=== PATIENT | male | born 1980 ===

== ENCOUNTER 2018-01-16 16:37 | Observation (INO) | payer OTHER ==
[2018-01-16 16:46] VITALS: BMI 22.1
[2018-01-16 18:15] LABS: BASO # 0.05 K/mm3 (0.0-2.0); BASO % 0.6 % (0.0-3.0); EOS # 0.1 (0.0-0.7); EOS % 0.6 % (1.5-5.0); GRAN # 6.08 (1.4-6.5); GRAN % 67.7 % (50.0-68.0); LYMPH # 2.5 (1.2-3.4); LYMPH % 27.6 % (22.0-35.0); MEAN CELL VOLUME 83.7 fl (80.0-105.0); MEAN CORPUSCULAR HEMOGLOBIN 28.7 pg (25.0-35.0); MEAN CORPUSCULAR HGB CONC 34.3 g/dl (31.0-37.0); MEAN PLATELET VOLUME 10.7 fl (7.0-11.0); MONO # 0.3 (0.1-0.6); MONO % 3.5 % (1.0-6.0); RBC 5.57 10^6/uL (3.5-6.1); RED CELL DISTRIBUTION WIDTH 12.7 % (11.5-14.5)
[2018-01-16 18:16] LABS: INR 0.97; PARTIAL THROMBOPLASTIN TIME 25.8 Seconds (25.1-36.5); PROTHROMBIN TIME 11.1 SECONDS (9.4-12.5)
[2018-01-16 18:29] LABS: ALB/GLOB RATIO 1.3 (1.1-1.8); ALT/SGPT 33 U/L (7-56); AST/SGOT 51 U/L (17-59); BLOOD UREA NITROGEN 15 mg/dL (7-21); CALCIUM 10.1 mg/dL (8.4-10.5); GFR NON-AFRICAN AMERICAN > 60; LIPASE 48 U/L (23-300)
--- NOTE | 2018-01-16 18:32 | CARD ---
APPROVED REPORT Date of service: 01/16/2018 EKG Measurement Heart [id number] OR [id number] <Conclusion> Normal sinus rhythm Normal Electrocardiogram
[2018-01-16 18:40] LABS: TROPONIN I < 0.01 ng/mL
--- NOTE | 2018-01-16 18:41 | CT ---
Date of service: 01/16/2018 PROCEDURE: CT HEAD WITHOUT CONTRAST. HISTORY: headache COMPARISON: None available. TECHNIQUE: Axial computed tomography images were obtained through the head/brain without intravenous contrast. Supplemental Coronal and Sagittal projections created and reviewed. Radiation dose: Total exam DLP = 906.04 mGy-cm. This CT exam was performed using one or more of the following dose reduction techniques: Automated exposure control, adjustment of the mA and/or kV according to patient size, and/or use of iterative reconstruction technique. FINDINGS: HEMORRHAGE: No intracranial hemorrhage. BRAIN: No mass effect or edema. No atrophy or chronic microvascular ischemic changes. VENTRICLES: Unremarkable. No hydrocephalus. CALVARIUM: Unremarkable. PARANASAL SINUSES: Unremarkable as visualized. No significant inflammatory changes. MASTOID AIR CELLS: Unremarkable as visualized. No inflammatory changes. OTHER FINDINGS: None. IMPRESSION: No acute intracranial abnormalities. No significant findings to account for the clinical presentation.
[2018-01-16 19:51] LABS: URINE BILIRUBIN NEGATIVE (NEGATIVE); URINE BLOOD NEGATIVE (NEGATIVE); URINE GLUCOSE (UA) NEGATIVE (NEGATIVE); URINE LEUKOCYTE ESTERASE NEGATIVE Leu/uL (NEGATIVE); URINE PROTEIN NEGATIVE mg/dL (<30 mg/dL); URINE UROBILINOGEN 0.2 E.U./dL (<1 E.U./dL)
[2018-01-16 20:01] LABS: URINE APPEARANCE CLEAR (CLEAR); URINE COLOR YELLOW (YELLOW)
[2018-01-16 20:41] LABS: BARBITURATES, UR NEGATIVE (NEGATIVE); BENZODIAZEPINES, UR NEGATIVE (NEGATIVE); OPIATES, UR NEGATIVE (NEGATIVE); PHENCYCLIDINE, UR NEGATIVE (NEGATIVE)
[2018-01-16] MEDS ORDERED: Albuterol-Ipratrop 3 mg / 0.5 (3 ml) UD IH PRN (22:18)
[2018-01-16] MEDS ORDERED: Azithromycin 500MG/NS 250ml 500 MG/250 ML BAG IVPB STA (22:18)
[2018-01-16] MEDS ORDERED: Sodium Chloride 0.9% 1,000 ML IV SCH (22:30)
[2018-01-16 22:34] VITALS: RESP 20
--- NOTE | 2018-01-17 01:53 | ED PDOC ---
Arrival/HPI - General Chief Complaint: High Blood Pressure Historian: Patient - History of Present Illness Narrative History of Present Illness (Text): 01/17/18 01:49 37yo male witn no pmhx who was referred to ED by Dr. toro for new onset hypertension, headache, back and, neck and pelvic pain. Patient notes that he saw Dr. Toro today for the headache, back, neck and pelvic pain that has been going on for months today. States while he was there today his BP was elevated and he was referred to ED. He denies focal weakness, slurred speech, visual c hanges, nausea, vomiting, ripping/tearing upper back pain, any other complaint. Past Medical History - Provider Review Nursing Documentation Reviewed: Yes - Infectious Disease Hx of Infectious Diseases: None - Cardiac Hx Cardiac Disorders: No - Pulmonary Hx Respiratory Disorders: No - Neurological Hx Neurological Disorder: No - HEENT Hx HEENT Disorder: No - Renal Hx Renal Disorder: No - Endocrine/Metabolic Hx Endocrine Disorders: No - Hematological/Oncological Hx Blood Disorders: No - Integumentary Hx Dermatological Disorder: No - Musculoskeletal/Rheumatological Hx Musculoskeletal Disorders: No Hx Falls: No - Gastrointestinal Hx Gastrointestinal Disorders: No - Genitourinary/Gynecological Hx Genitourinary Disorders: No - Psychiatric Hx Psychophysiologic Disorder: No Hx Substance Use: No Family/Social History - Physician Review Nursing Documentation Reviewed: Yes Family/Social History: Unknown Family HX Smoking Status: Never Smoked Hx Alcohol Use: No Hx Substance Use: No Allergies/Home Meds Allergies/Adverse Reactions: Allergies No Known Allergies Allergy (Verified 01/16/18 16:46) Home Medications: Home Meds Medication Instructions Recorded Confirmed No Known Home Med 01/16/18 01/16/18 Review of Systems - Physician Review All systems were reviewed & negative as marked: Yes - Review of Systems Constitutional: Normal Eyes: Normal ENT: Normal Respiratory: Normal Cardiovascular: Normal Gastrointestinal: Abdominal Pain. absent: Constipation, Diarrhea, Nausea, Vomiting, Hematemesis Genitourinary Male: Normal Musculoskeletal: Back Pain Skin: Normal Neurological: Headache. absent: Dizziness, Focal Weakness, Speech Changes Endocrine: Normal Hemo/Lymphatic: Normal Psychiatric: Normal Physical Exam Vital Signs Reviewed: Yes Vital Signs Temp Pulse Resp BP Pulse Ox 01/16/18 19:32 76 18 136/87 99 01/16/18 18:32 85 16 144/88 99 01/16/18 16:49 166/103 H 01/16/18 16:47 98.3 F 92 H 18 154/94 H 97 Temperature: Afebrile Blood Pressure: Hypertensive Pulse: Regular Respiratory Rate: Normal Appearance: Positive for: Well-Appearing, Non-Toxic, Comfortable Pain Distress: None Mental Status: Positive for: Alert and Oriented X 3 - Systems Exam Head: Present: Atraumatic, Normocephalic Pupils: Present: PERRL Extroacular Muscles: Present: EOMI Conjunctiva: Present: Normal Mouth: Present: Moist Mucous Membranes Neck: Present: Normal Range of Motion Respiratory/Chest: Present: Clear to Auscultation, Good Air Exchange. No: Respiratory Distress, Accessory Muscle Use Cardiovascular: Present: Regular Rate and Rhythm, Normal S1, S2. No: Murmurs Abdomen: No: Tenderness, Distention, Peritoneal Signs Back: Present: Normal Inspection. No: Midline Tenderness, Paraspinal Tenderness, Pain with Leg Raise Upper Extremity: Present: Normal Inspection. No: Cyanosis, Edema Lower Extremity: Present: Normal Inspection. No: Edema Neurological: Present: GCS=15, CN II-XII Intact, Speech Normal, Motor Func Grossly Intact, Normal Sensory Function, Normal Cerebellar Funct, Norm Deep Tendon Reflexes, Gait Normal, Memory Normal Skin: Present: Warm, Dry, Normal Color. No: Rashes Psychiatric: Present: Alert, Oriented x 3, Normal Insight, Normal Concentration Medical Decision Making ED Course and Treatment: 01/17/18 01:57 PT presented to ED for stated history. He was neurologically intact and in no distress in ED. His headache and BP improved in with Tylenol Lab EKG CXR Head CT Lab was unremarkable EKG NSR @ 92bpm N-stemi Head CT IMPRESSION: No acute intracranial abnormalities. No significant findings to account for the clinical presentation. Case was DW Dr. Toro and she requested admission for further OBS and evaluation Result and plan was DW the pt and he agreed - Lab Interpretations Lab Results: 01/16/18 17:40 01/16/18 17:40 Lab Results 01/16/18 17:40: Sodium 142, Potassium 3.5 L, Chloride 105, Carbon Dioxide 27, Anion Gap 14, BUN 15, Creatinine 1.0, Est GFR ( Amer) > 60, Est GFR (Non- Af Amer) > 60, Random Glucose 92, Calcium 10.1, Magnesium 2.3 H, Total Bilirubin 0.5, AST 51, ALT 33, Alkaline Phosphatase 92, Lactate Dehydrogenase 511, Total Creatine Kinase 216, Troponin I < 0.01, Total Protein 8.8 H, Albumin 5.0 H, Globulin 3.8, Albumin/Globulin Ratio 1.3, Lipase 48 01/16/18 17:40: PT 11.1, INR 0.97, APTT 25.8 01/16/18 17:40: WBC 9.0, RBC 5.57, Hgb 16.0, Hct 46.6, MCV 83.7, MCH 28.7, MCHC 34.3, RDW 12.7, Plt Count 238, MPV 10.7, Gran % 67.7, Lymph % (Auto) 27.6, [place] % (Auto) 3.5, Eos % (Auto) 0.6 L, Baso % (Auto) 0.6, Gran # 6.08, Lymph # (Auto) 2.5, [place] # (Auto) 0.3, Eos # (Auto) 0.1, Baso # (Auto) 0.05 - RAD Interpretation Radiology Orders: 01/16/18 17:35 HEAD W/O CONTRAST [CT] Stat - Medication Orders Current Medication Orders: Acetaminophen (Tylenol 325mg Tab) 650 mg PO Q4H PRN PRN Reason: Fever >100.4 F Acetaminophen (Tylenol 325mg Tab) 650 mg PO Q4H PRN PRN Reason: Pain, Mild (1-3) Aspirin (Ecotrin) 81 mg PO DAILY BRONWYN Famotidine (Pepcid) 40 mg PO HS BRONWYN Discontinued Medications Acetaminophen (Tylenol 325mg Tab) 650 mg PO STAT STA Stop: 01/16/18 17:07 Last Admin: 01/16/18 17:54 Dose: 650 mg MAR Pain/Vitals Document 01/16/18 17:54 EB (Rec: 01/16/18 17:55 [id number] Pain Reassessment Is This A Pain ReAssessment? No Sleep Is patient sleeping during reassessment? No Presence of Pain Presence of Pain Yes Pain Scale Used Protocol: PSCALES Pain Scale Used Numeric Location Intensity 7 Scale Used Numeric Ketorolac Tromethamine (Toradol) 30 mg IVP STAT STA Stop: 01/16/18 22:07 Last Admin: 01/16/18 22:37 Dose: 30 mg VALERIA Pain Assessment Document 01/16/18 22:37 MV (Rec: 01/16/18 22:38 MV [id number]) Pain Reassessment Is this a pain reassessment? No Sleep Is patient sleeping during reassessment? No Presence of Pain Presence of Pain Yes Pain Scale Used Protocol: PSCALES Pain Scale Used Numeric Location Pain Location Body Geophysical Computer Neck Description Description Constant Pain Behavior Irritability Rubbing Site Facial Grimacing Alleviating Factors/Management Medication Techniques Alleviating Factors Medication IVP Administration Document 01/16/18 22:37 MV (Rec: 01/16/18 22:38 MV [id number]) Charges for Administration # of IVP Administrations 1 Re-Assess: VALERIA Pain Assessment Document 01/16/18 23:37 MV (Rec: 01/16/18 23:56 MV [id number]) Pain Reassessment Is this a pain reassessment? Yes Sleep Is patient sleeping during reassessment? Yes Disposition/Present on Arrival - Present on Arrival Any Indicators Present on Arrival: No History of DVT/PE: No History of Uncontrolled Diabetes: No Urinary Catheter: No History of Decub. Ulcer: No History Surgical Site Infection Following: None - Disposition Have Diagnosis and Disposition been Completed?: Yes Diagnosis: Hypertension, Headache Disposition: HOSPITALIZED Disposition Time: 19:00 Patient Plan: Admission Patient Problems: Current Active Problems Problem Status Onset Headache Acute Hypertension Acute Condition: STABLE
[2018-01-17] MEDS ORDERED: Albuterol-Ipratrop 3 mg / 0.5 (3 ml) UD IH SCH (02:00)
[2018-01-17 06:19] LABS: HEMOGLOBIN 15.5 g/dL (14.0-18.0); MEAN CELL VOLUME 83.7 fl (80.0-105.0); MEAN CORPUSCULAR HEMOGLOBIN 28.3 pg (25.0-35.0); MEAN CORPUSCULAR HGB CONC 33.8 g/dl (31.0-37.0); MEAN PLATELET VOLUME 10.3 fl (7.0-11.0); RBC 5.47 10^6/uL (3.5-6.1); RED CELL DISTRIBUTION WIDTH 12.7 % (11.5-14.5)
[2018-01-17 06:31] LABS: IRON 214 ug/dL (45-180)
[2018-01-17 06:33] LABS: BLOOD UREA NITROGEN 16 mg/dL (7-21); CALCIUM 9.3 mg/dL (8.4-10.5); GFR NON-AFRICAN AMERICAN > 60; HDL CHOLESTEROL 40 mg/dL (29-60)
[2018-01-17 06:40] LABS: % IRON SATURATION 61 % (20-55); TOTAL IRON BINDING CAPACITY 350 ug/dL (261-462)
[2018-01-17 06:42] LABS: TROPONIN I < 0.01 ng/mL
[2018-01-17 06:44] LABS: LDL CHOLESTEROL 119 mg/dL (0-129)
--- NOTE | 2018-01-17 09:28 | RAD ---
Date of service: 01/17/2018 HISTORY: sob, coughing COMPARISON: No prior. TECHNIQUE: Chest PA and lateral FINDINGS: LUNGS: No active pulmonary disease. PLEURA: No significant pleural effusion identified. No pneumothorax apparent. CARDIOVASCULAR: No aortic atherosclerotic calcification present. Normal cardiac size. No pulmonary vascular congestion. OSSEOUS STRUCTURES: No significant abnormalities. VISUALIZED UPPER ABDOMEN: Normal. OTHER FINDINGS: None. IMPRESSION: No interval acute cardiopulmonary disease appreciated.
[2018-01-17] MEDS ORDERED: cefTRIAXone 1 gm 1 GM/100 ML BAG IVPB SCH (10:00)
[2018-01-17] MEDS ORDERED: MethylPREDNISolone 40 mg Vial IVP SCH (10:00)
--- NOTE | 2018-01-17 11:18 | CP.PCM.CON ---
History of Present Illness - History of Present Illness History of Present Illness: Awake, alert, no distress, denies shortness of breath Reason for consultation: Cardiac evaluation of hypertension Brief history of present illness: A 37 year old young male who was referred to ER by Dr. Toro due to new onset hypertension. He was complaining of headache,back and neck pain for almost a month now. Denies any medical history.Denies smoking. Seen and examined by me and Dr. Smiley Review of Systems - Review of Systems All systems: reviewed and no additional remarkable complaints except Review of Systems: as per HPI Past Patient History - Infectious Disease Hx of Infectious Diseases: None - Past Social History Smoking Status: Never Smoked - CARDIAC Hx Cardiac Disorders: No - PULMONARY Hx Respiratory Disorders: No - NEUROLOGICAL Hx Neurological Disorder: No - HEENT Hx HEENT Problems: No - RENAL Hx Chronic Kidney Disease: No - ENDOCRINE/METABOLIC Hx Endocrine Disorders: No - HEMATOLOGICAL/ONCOLOGICAL Hx Blood Disorders: No - INTEGUMENTARY Hx Dermatological Problems: No - MUSCULOSKELETAL/RHEUMATOLOGICAL Hx Musculoskeletal Disorders: No Hx Falls: No - GASTROINTESTINAL Hx Gastrointestinal Disorders: No - GENITOURINARY/GYNECOLOGICAL Hx Genitourinary Disorders: No - PSYCHIATRIC Hx Psychophysiologic Disorder: No Hx Substance Use: No - SURGICAL HISTORY Hx Surgeries: No Meds Allergies/Adverse Reactions: Allergies Allergy/AdvReac Type Severity Reaction Status Date / Time No Known Allergies Allergy Verified 01/16/18 16:46 - Medications Medications: Current Medications Acetaminophen (Tylenol 325mg Tab) 650 mg PO Q4H PRN PRN Reason: Fever >100.4 F Last Admin: 01/17/18 09:58 Dose: 650 mg Acetaminophen (Tylenol 325mg Tab) 650 mg PO Q4H PRN PRN Reason: Pain, Mild (1-3) Aspirin (Ecotrin) 81 mg PO DAILY BRONWYN Last Admin: 01/17/18 09:31 Dose: 81 mg Famotidine (Pepcid) 40 mg PO HS [facility] Physical Exam - Constitutional Appears: Non-toxic, No Acute Distress - Head Exam Head Exam: NORMAL INSPECTION, NORMOCEPHALIC - Eye Exam Eye Exam: Normal appearance Pupil Exam: NORMAL ACCOMODATION - ENT Exam ENT Exam: Mucous Membranes Moist, Normal Exam - Respiratory Exam Respiratory Exam: Clear to Auscultation Bilateral, NORMAL BREATHING PATTERN - Cardiovascular Exam Cardiovascular Exam: +S1, +S2 - GI/Abdominal Exam GI & Abdominal Exam: Normal Bowel Sounds, Soft - Neurological Exam Neurological exam: Alert, Oriented x3 - Psychiatric Exam Psychiatric exam: Normal Affect, Normal Mood - Skin Skin Exam: Dry, Normal Color, Warm Results - Vital Signs Recent Vital Signs: Last Vital Signs Temp 98 F 01/17/18 09:18 Pulse 78 01/17/18 09:18 Resp 20 01/17/18 09:18 BP 112/79 01/17/18 09:18 Pulse Ox 97 01/17/18 09:18 - Labs Result Diagrams: 01/17/18 05:45 01/17/18 05:45 Labs: Laboratory Results - last 24 hr 01/16/18 01/16/18 01/16/18 17:40 17:40 17:40 WBC 9.0 RBC 5.57 Hgb 16.0 Hct 46.6 MCV 83.7 MCH 28.7 MCHC 34.3 RDW 12.7 Plt Count 238 MPV 10.7 Gran % 67.7 Lymph % (Auto) 27.6 [place] % (Auto) 3.5 Eos % (Auto) 0.6 L Baso % (Auto) 0.6 Gran # 6.08 Lymph # (Auto) 2.5 [place] # (Auto) 0.3 Eos # (Auto) 0.1 Baso # (Auto) 0.05 PT 11.1 INR 0.97 APTT 25.8 Sodium 142 Potassium 3.5 L Chloride 105 Carbon Dioxide 27 Anion Gap 14 BUN 15 Creatinine 1.0 Est GFR ( Amer) > 60 Est GFR (Non-Af Amer) > 60 Random Glucose 92 Calcium 10.1 Magnesium 2.3 H Iron TIBC % Saturation Total Bilirubin 0.5 AST 51 ALT 33 Alkaline Phosphatase 92 Lactate Dehydrogenase 511 Total Creatine Kinase 216 Troponin I < 0.01 Total Protein 8.8 H Albumin 5.0 H Globulin 3.8 Albumin/Globulin Ratio 1.3 Triglycerides Cholesterol LDL Cholesterol Direct HDL Cholesterol Lipase 48 TSH 3rd Generation Urine Color Urine Appearance Urine pH Ur Specific [place] Urine Protein Urine Glucose (UA) Urine Ketones Urine Blood Urine Nitrate Urine Bilirubin Urine Urobilinogen Ur Leukocyte Esterase Urine Opiates Screen Urine Methadone Screen Ur Barbiturates Screen Ur Phencyclidine Scrn Ur Amphetamines Screen U Benzodiazepines Scrn U Oth Cocaine Metabols U Cannabinoids Screen 11/28/18 11/28/18 11/29/18 19:35 19:35 05:45 WBC RBC Hgb Hct MCV MCH MCHC RDW Plt Count MPV Gran % Lymph % (Auto) [place] % (Auto) Eos % (Auto) Baso % (Auto) Gran # Lymph # (Auto) [place] # (Auto) Eos # (Auto) Baso # (Auto) PT INR APTT Sodium 141 Potassium 3.9 Chloride 104 Carbon Dioxide 28 Anion Gap 12 BUN 16 Creatinine 1.0 Est GFR ( Amer) > 60 Est GFR (Non-Af Amer) > 60 Random Glucose 90 Calcium 9.3 Magnesium Iron TIBC % Saturation Total Bilirubin AST ALT Alkaline Phosphatase Lactate Dehydrogenase 364 Total Creatine Kinase 144 Troponin I < 0.01 Total Protein Albumin Globulin Albumin/Globulin Ratio Triglycerides 141 Cholesterol 174 LDL Cholesterol Direct 119 HDL Cholesterol 40 Lipase TSH 3rd Generation Urine Color Yellow Urine Appearance Clear Urine pH 6.0 Ur Specific [place] 1.025 Urine Protein Negative Urine Glucose (UA) Negative Urine Ketones Negative Urine Blood Negative Urine Nitrate Negative Urine Bilirubin Negative Urine Urobilinogen 0.2 Ur Leukocyte Esterase Negative Urine Opiates Screen Negative Urine Methadone Screen Negative Ur Barbiturates Screen Negative Ur Phencyclidine Scrn Negative Ur Amphetamines Screen Negative U Benzodiazepines Scrn Negative U Oth Cocaine Metabols Negative U Cannabinoids Screen Negative 01/17/18 01/17/18 01/17/18 05:45 05:45 05:45 WBC 7.0 D RBC 5.47 Hgb 15.5 Hct 45.8 MCV 83.7 MCH 28.3 MCHC 33.8 RDW 12.7 Plt Count 223 MPV 10.3 Gran % Lymph % (Auto) [place] % (Auto) Eos % (Auto) Baso % (Auto) Gran # Lymph # (Auto) [place] # (Auto) Eos # (Auto) Baso # (Auto) PT INR APTT Sodium Potassium Chloride Carbon Dioxide Anion Gap BUN Creatinine Est GFR ( Amer) Est GFR (Non-Af Amer) Random Glucose Calcium Magnesium Iron 214 H TIBC 350 % Saturation 61 H Total Bilirubin AST ALT Alkaline Phosphatase Lactate Dehydrogenase Total Creatine Kinase Troponin I Total Protein Albumin Globulin Albumin/Globulin Ratio Triglycerides Cholesterol LDL Cholesterol Direct HDL Cholesterol Lipase TSH 3rd Generation 1.12 Urine Color Urine Appearance Urine pH Ur Specific [place] Urine Protein Urine Glucose (UA) Urine Ketones Urine Blood Urine Nitrate Urine Bilirubin Urine Urobilinogen Ur Leukocyte Esterase Urine Opiates Screen Urine Methadone Screen Ur Barbiturates Screen Ur Phencyclidine Scrn Ur Amphetamines Screen U Benzodiazepines Scrn U Oth Cocaine Metabols U Cannabinoids Screen Assessment & Plan - Assessment and Plan (Free Text) Assessment: A 37 year old young male who was referred to ER by Dr. Toro due to new onset hypertension. He was complaining of headache,back and neck pain for almost a month now. Denies any medical history.Denies smoking. Blood pressure systolic - 160's. New onset hypertension. Troponin normal, EKG normal sinus rhythm,no ischemia, CT of head- unremarkable, no bleeding. Will order echo to evaluate LV function. No previous cardiac work up done at [facility]. Plan: Denies chest pain, denies shortness of breath Blood pressure controlled now Will start Norvasc Heart rate controlled Lipid profile and TSH WNL Echo to evaluate LV function On ASA 81 mg daily Continue current treatment Chart reviewed Will follow up Further recommendations during hospital course Plan and treatment discussed with Dr. Smiley Thank you Dr. Toro for the opportunity of taking care of Mr. Velasco Perrymicheal Ranjit baldwin - Date & Time Date: 01/17/18 Time: 07:30
[2018-01-17 13:55] LABS: FOLATE 15.8 ng/mL
--- NOTE | 2018-01-17 15:39 | CARD ---
APPROVED REPORT Date of service: 01/17/2018 EXAM: Two-dimensional and M-mode echocardiogram with Doppler and color Doppler. INDICATION LV Function:SystolicDiastolic 2D DIMENSIONS Left Atrium (2D)3.6 (1.6-4.0cm)IVSd1.1 (0.7-1.1cm) LVDd5.0 (3.9-5.9cm)PWd0.9 (0.7-1.1cm) LVDs3.4 (2.5-4.0cm)FS (%) 32.0 % LVEF (%)60.0 (>50%) M-Mode DIMENSIONS Aortic Root2.70 (2.2-3.7cm)Aortic Cusp Exc.1.80 (1.5-2.0cm) Aortic Valve AoV Peak Grknkcjz709.0cm/Ravindra Peak GR.6mmHg Mitral Valve MV E Marrenkx86.4cm/sMV A Bsusdonu30.8cm/sE/A ratio0.9 TDI E/Lateral E'0.0E/Medial E'0.0 Tricuspid Valve TR Peak [id number]/sRAP [id number] Peak Gr.8mmHg [id number] LEFT VENTRICLE The left ventricle is normal size. There is normal left ventricular wall thickness. The left ventricular function is normal.EF-55-60% There is normal LV segmental wall motion. Transmitral Doppler flow pattern is Grade III-reversible restrictive diastolic dysfunction. No left ventricle thrombus noted on this study. There is no ventricular septal defect visualized. There is no left ventricular aneurysm. There is no mass noted in the left ventricle. RIGHT VENTRICLE The right ventricle is normal size. There is normal right ventricular wall thickness. The right ventricular systolic function is normal. ATRIA The left atrium size is normal. The right atrium size is normal. The interatrial septum is intact with no evidence for an atrial septal defect. AORTIC VALVE The aortic valve is normal in structure. No aortic regurgitation is present. There is no aortic valvular stenosis. There is no aortic valvular vegetation. MITRAL VALVE The mitral valve is thickened but opens well. Mitral regurgitation is trace. There is no mitral valve stenosis. There is no evidence of mitral valve prolapse. TRICUSPID VALVE The tricuspid valve is normal in structure. There is trace tricuspid regurgitation.RVSP_18 mmof hg. There is no tricuspid valve stenosis. There is no tricuspid valve prolapse or vegetation. PULMONIC VALVE The pulmonary valve is normal in structure. There is trace pulmonic valvular regurgitation. There is no pulmonic valvular stenosis. GREAT VESSELS The aortic root is normal in size. The ascending aorta is normal in size. The pulmonary artery is normal. The IVC is normal in size and collapses >50% with inspiration. PERICARDIAL EFFUSION There is no pleural effusion. Trivial pericardial effusion. <Conclusion> Normal Chamber Size. EF-55-60% Trace MR/TR/PI RVSP-18 mmof Hg. Trivial pericardial effusion.
--- NOTE | 2018-01-17 18:34 | CON ---
DATE OF CONSULTATION: 01/17/2018 CONSULT SERVICE: Cardiology. REASON FOR CONSULTATION: Followup cardiac evaluation, admitted with uncontrolled hypertension. This note is addition to dictation with nurse practitioner. HISTORY OF PRESENT ILLNESS: In summary, this is a 37-year-old male, referred from Dr. Toro's office because the patient was found to be in uncontrolled hypertension, 160/110. The patient speaks Upper Sorbian, very poor historian. Denies any chest pain, shortness of breath, any palpitation. Denies any history of hypertension or diabetes. PAST MEDICAL HISTORY: Nothing significant. Denies any history of high blood pressure. MEDICATIONS: Currently, no medications. SOCIAL HISTORY: Denies any alcohol abuse. FAMILY HISTORY: Denies any family history. Family history, nothing significant. REVIEW OF SYSTEMS: As per HPI, except palpitation. The patient yesterday went to see Dr. Toro because of having headache off and on. PHYSICAL EXAMINATION: VITAL SIGNS: As follows: Height of the patient 5 feet and 9 inches, weight of the patient 150 pounds. Body mass index 22.2 kg/m2. Temperature afebrile, heart rate 78, blood pressure 112/79. HEENT: PERRLA intact. NECK: Supple. No carotid bruit or thyromegaly. CHEST: Clear to auscultation. HEART: S1 and S2, regular. ABDOMEN: Soft. EXTREMITIES: Clubbing and cyanosis negative. LABORATORY DATA: Blood workup as follows: WBC is 7, hemoglobin 15, hematocrit of 45.8, and platelet count 223. Chemistry shows sodium 141, potassium 3.9, chloride 104, carbon dioxide 28, anion gap of 12, BUN 16, creatinine 1. Troponin 0.01, negative. EKG showed normal sinus rhythm, no acute ST-T changes noted, essentially normal EKG, and no LVH. IMPRESSION: A 37-year-old male with no significant past medical history, admitted after having headache and found with a blood pressure by Dr. Toro's office of 160/110. Denies any chest pain, shortness of breath. Denies any palpitation. No evidence of acute myocardial infarction. RECOMMENDATIONS: We will get echo to assess LV function, LVH, and significant valvular heart disease. We will start low dose of Norvasc and monitor the blood pressure closely. Repeat blood pressure of 112/79. Further recommendation based on hospital course. We will follow lipid profile, TSH, and hemoglobin A1c. Thank you, Dr. Toro, for providing us the opportunity in taking care of the patient, Katty Velasco. Adonay Smiley MD
--- NOTE | 2018-01-18 01:10 | PN ---
DATE: 01/17/2018 SUBJECTIVE: The patient is 37 years old male. The patient was seen and examined at the bedside, still complaining about headache. Even blood pressure is getting better. Chest pain and abdominal pain are better. No fever, no chills. No hematuria or hematochezia. PHYSICAL EXAMINATION VITAL SIGNS: Temperature 98, pulse 78, respiratory rate 20, blood pressure 112/79, pulse oximetry 97. HEENT: Head normocephalic, atraumatic. Eyes PERRLA. Extraocular muscles are intact. Conjunctivae clear. Nose patent. Mucous membranes moist. NECK: Supple. No carotid bruits. No JVD or thyromegaly. CHEST: Bilaterally symmetrical. HEART: S1,S2 positive. LUNGS: Clear to auscultation. ABDOMEN: Soft. Bowel sounds present. No organomegaly. EXTREMITIES: No edema. No cyanosis. NEUROLOGIC: The patient is awake, alert. Moving all four extremities. No focal deficits. LABORATORY DATA: White blood cells 7, hemoglobin 15.5, hematocrit 45.8, and platelets 223. Sodium 141, potassium 3.9, BUN noted , creatinine 1, glucose 90. ASSESSMENT AND PLAN: Mr. Katty Velasco is a 37 years old male with hypertension, new onset; headache; neck pain; and back pain. Troponin normal. EKG; normal sinus rhythm, no ischemia. CAT scan of the head unremarkable. Echocardiogram is done for evaluation of left ventricular function. Shortness of breath is better. Seen by draw hand, suggested to continue aspirin. Seen by Dr. Bhavya Smiley also. Dr. Smiley started low dose of Norvasc. Repeat blood pressure 112/79. Ordered further testing. Called Neurology consult, making further input. Meanwhile continue aspirin, amlodipine, Protonix, and Tylenol. Gastric and deep venous thrombosis prophylaxis. Repeat labs. We will follow up. Caitlyn Toro MD [id number]
--- NOTE | 2018-01-18 01:45 | CON ---
DATE OF CONSULTATION: 01/17/2018 REFERRING PHYSICIAN: Caitlyn Toro MD REASON FOR CONSULTATION: Newly diagnosed hypertension. Has some cough. May have sleep apnea syndrome. HISTORY OF PRESENT ILLNESS: This is a 37-year-old gentleman without any significant past medical history, seen by Dr. Toro in the office, found to have a new onset of hypertension and other nonspecific symptoms, which include a headache, back pain, neck pain, been having cough, admits to have snoring, daytime sleepiness. No chest pain, no nausea, no vomiting, no diarrhea, no leg pain or leg swelling. PAST MEDICAL HISTORY: There is no history of cardiopulmonary disease. FAMILY HISTORY: No significant carpal disease reported. SOCIAL HISTORY: Nonsmoker, nondrinker. MEDICATIONS: Ecotrin 81 mg daily, Norvasc 2.5 mg daily, Pepcid 40 mg daily, Tylenol p.r.n. basis. Also received Toradol 30 mg IV stat 1 dose in ER. ALLERGIES: NONE KNOWN. REVIEW OF SYSTEMS: On and off headache, upper neck, shoulder pain, has some sore throat, cough, no rhinitis. Admits to have snoring, daytime sleepiness. No nausea, no vomiting, no diarrhea. PHYSICAL EXAMINATION: GENERAL: No acute distress. VITAL SIGNS: Temperature is 98, heart rate is 83, respiratory rate is 20, blood pressure 131/98. HEENT: Moist mucous membranes. Crowded airway. Mallampati score is always 4. NECK: Supple. No JVD. LUNGS: Fair airflow with rhonchi. HEART: S1 and S2. ABDOMEN: Soft, nontender. No organomegaly. EXTREMITIES: No edema. NEUROLOGIC: Awake, alert, follows simple commands. LABORATORY DATA: Hemoglobin 15.5, hematocrit 45.8, WBC 7.0, platelets 223. INR was 0.97. PTT 26. Sodium 141, potassium 3.9, chloride 104, bicarbonate 28, BUN 16, creatinine 1.0, hemoglobin A1c 5.7. Iron is 214, TIBC 350. AST 51, ALT 33, alk phos is 92. LDH is 364. Troponin less than 0.01. Cholesterol is 174. TSH 1.12. Lipase is 48. B12 of 277. Folate is 15.8. Urinalysis unremarkable. Tox screen is unremarkable. Had a chest x-ray done, which shows no infiltrate or effusion. Had a CAT scan of the head done, which is unremarkable. Echocardiogram was done, which shows right ventricular systolic pressure is 18, normal LV ejection fraction. IMPRESSION AND PLAN: Newly diagnosed hypertension. May have gastroesophageal reflux disease. Rule out sleep apnea syndrome. Agree with the present management. We will add Protonix 40 mg h.s. Gastroesophageal reflux disease precautions. Continue amlodipine for now. Gastric prophylaxis. Upon discharge, we will suggest home sleep study. Sleep apnea precautions. Thank you and we will follow with you. Adonay Anders MD
[2018-01-18] MEDS ORDERED: Pantoprazole 40 mg EC Tab PO SCH (06:00)
--- NOTE | 2018-01-18 06:00 | CP.PCM.PN ---
Subjective - Date & Time of Evaluation Date of Evaluation: 01/18/18 Time of Evaluation: 06:10 - Subjective Subjective: Sitting in bed, Awake, alert, no distress, denies shortness of breath. spoke to RN Reason for consultation: Cardiac evaluation of hypertension,complaining of headache,back and neck pain for almost a month now Seen and examined by me and Dr. Smiley Objective - Vital Signs/Intake and Output Vital Signs (last 24 hours): Temp Pulse Resp BP Pulse Ox 98.2 F 58 L 20 131/88 98 01/17/18 18:40 01/18/18 02:00 01/17/18 18:40 01/17/18 18:40 01/17/18 18:40 - Medications Medications: Current Medications Acetaminophen (Tylenol 325mg Tab) 650 mg PO Q4H PRN PRN Reason: Fever >100.4 F Last Admin: 01/17/18 09:58 Dose: 650 mg Acetaminophen (Tylenol 325mg Tab) 650 mg PO Q4H PRN PRN Reason: Pain, Mild (1-3) Amlodipine Besylate (Norvasc) 2.5 mg PO DAILY [facility] Last Admin: 01/17/18 17:24 Dose: 2.5 mg Aspirin (Ecotrin) 81 mg PO DAILY [facility] Last Admin: 01/17/18 09:31 Dose: 81 mg Cyanocobalamin (Vitamin B12 1000 Mcg/Ml Inj) 1,000 mcg IM DAILY [facility] Pantoprazole Sodium (Protonix Ec Tab) 40 mg PO 0600 [facility] - Labs Labs: 01/17/18 05:45 01/17/18 05:45 PT 11.1 SECONDS (9.4-12.5) 01/16/18 17:40 INR 0.97 01/16/18 17:40 APTT 25.8 Seconds (25.1-36.5) 01/16/18 17:40 - Constitutional Appears: Non-toxic, No Acute Distress - Head Exam Head Exam: NORMAL INSPECTION, NORMOCEPHALIC - Eye Exam Eye Exam: Normal appearance Pupil Exam: NORMAL ACCOMODATION - ENT Exam ENT Exam: Mucous Membranes Moist, Normal Exam - Respiratory Exam Respiratory Exam: Clear to Ausculation Bilateral, NORMAL BREATHING PATTERN - Cardiovascular Exam Cardiovascular Exam: +S1, +S2 - GI/Abdominal Exam GI & Abdominal Exam: Soft, Normal Bowel Sounds - Extremities Exam Extremities Exam: Full ROM, Normal Capillary Refill - Neurological Exam Neurological Exam: Alert, Awake, Oriented x3 - Psychiatric Exam Psychiatric exam: Normal Affect, Normal Mood - Skin Skin Exam: Dry, Normal Color, Warm Assessment and Plan - Assessment and Plan (Free Text) Assessment: A 37 year old young male who was referred to ER by Dr. Toro due to new onset hypertension. He was complaining of headache,back and neck pain for almost a month now. Denies any medical history.Denies smoking. Blood pressure systolic - 160's. New onset hypertension. Troponin normal, EKG normal sinus rhythm,no ischemia, CT of head- unremarkable, no bleeding. No previous cardiac work up done at [facility] [place].Echo done, LVEF 55-60%. Controlled blood pressure. Started on Norvasc. Lifestyle modification. 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 Smiley
[2018-01-18 07:37] VITALS: BP 130/76; TEMP 98.1; O2SAT 99
[2018-01-18 12:14] VITALS: PULSE 90
--- NOTE | 2018-01-18 22:31 | PN ---
DATE: 01/18/2018 SEX OF THE PATIENT: Male. AGE: 37. TYPE OF DICTATION: Progress note. REFERRING PHYSICIAN: . REASON FOR CONSULTATION FOLLOWUP: Atypical chest pain, uncontrolled hypertension, cardiac evaluation. This note is in addition to dictated by nurse practitioner. SUBJECTIVE: The patient has a lot of stress at work and that causes distress. Started 2.5 mg of Norvasc. The patient is stable. The patient had an echocardiography done, ejection fraction , RV systolic pressure 18, trivial pericardial effusion noted. Denies any chest pain, shortness of breath, or any palpitation. RECOMMENDATIONS: Continue Norvasc 2.5 mg daily. Consider stress test as an outpatient as low risk because the patient's only risk factor is being male. Discussed with the patient. Follow up with you as outpatient. Thank you Dr. Toro for providing us the opportunity in taking care of Rod Katty Banks. Adonay Smiley MD
--- NOTE | 2018-01-20 14:10 | HP ---
DATE OF EXAM: 01/17/2018 Patient is a 37-year-old male. Patient came into the ER on 01/16/2018, but I saw the patient on 01/17/2018. CHIEF COMPLAINT AND HISTORY OF PRESENT ILLNESS: Mr. Rod Banks is a 37-year-old male who was seen in my office on 01/16/2018 for headache, neck pain, chest pain, abdominal pain. He has new onset high blood pressure and according to him this is happening from a couple of months, and he denies any focal weakness, speech, no visual changes, no ripping or tearing pain. We admitted the patient. CAT scan of the head is done, reviewed by me. Neurology consult called. PAST MEDICAL HISTORY: Noncontributory. FAMILY HISTORY: Father and mother noncontributory. HABIT: Never smoked. No drugs. ALLERGIES: THE PATIENT IS NOT ALLERGIC WITH ANY MEDICATIONS. HOME MEDICATIONS: Reviewed by me. Patient is denying any home medications. REVIEW OF SYSTEMS: The patient was seen and examined at the bedside. For details, see my progress note dictated on 01/17/2018. It contains review of systems, physical examination, labs and assessment and plan. Caitlyn Toro MD MTDD
--- NOTE | 2018-01-20 18:49 | DS ---
01/18/18 The patient was seen and examined at the bedside on 01/18/2018. CHIEF COMPLAINT: High blood pressure, chest pain, and body aches. HISTORY OF PRESENT ILLNESS: Mr. Rod Banks is a 37-year-old male was seen first time in my office for new onset of hypertension, headache, back pain, neck pain, pelvic pain, and especially chest pain and I send the patient to the hospital. We admitted the patient, did CAT scan of the head, chest x-ray, seen by the dental office receptionist and hold worker, blood pressure improved, got under control, and discharged home with p.o. medications. Follow up with dental office receptionist, hold worker, neurologist, and primary care physician as an outpatient. PAST MEDICAL HISTORY: Nonsignificant. FAMILY HISTORY: Father and mother noncontributory. HABITS: Never smoked. No drugs. No ethanol. ALLERGIES: THE PATIENT IS NOT ALLERGIC WITH ANY MEDICATIONS. HOME MEDICATIONS: Denied. REVIEW OF SYSTEMS: No fever. No chills. No hematuria or hematochezia. No swelling of the legs. No chest pain. No palpitations. Headache is better. PHYSICAL EXAMINATION: VITAL SIGNS: Temperature 98.2, pulse 58, respirations 20, blood pressure 120/80 , and pulse oximetry is 98%. HEENT: Head; normocephalic and atraumatic. Eyes; PERRLA. Extraocular muscles are intact. Conjunctivae clear. Nose patent. Mucous membranes moist. NECK: Supple. No carotid bruits. No JVD or thyromegaly. CHEST: Bilaterally symmetrical. HEART: S1 and S2 positive. LUNGS: Clear to auscultation. ABDOMEN: Soft. Bowel sounds present. No organomegaly. EXTREMITIES: No edema. No cyanosis. NEUROLOGIC: The patient is awake and alert. Moving all four extremities. No focal deficits. MEDICATIONS: Tylenol, Norvasc, Ecotrin, and vitamin B12. LABORATORY DATA: White blood cells 7, hemoglobin 15.5, hematocrit 45.8, and platelets 223. Sodium 141, potassium 3.9, BUN noted , creatinine 1, and glucose 90. ASSESSMENT AND PLAN: Mr. Rod Banks is a 37-year-old male was seen in my office for chest pain, abdominal pain, headache, and new onset of hypertension. The patient was admitted. Blood pressure medicine given. Troponin was normal. EKG; normal sinus rhythm, no ischemia. CT of the head unremarkable. No bleeding. No previous cardiac workup done at [facility]. Echo done. Left ventricular ejection fraction was 55-60%, controlled blood pressure, started on Norvasc , lifestyle modification. Echo reviewed by me and on the day of discharge, no chest pain. Blood pressure was controlled very well. Getting aspirin. Currently, the patient has stress at work, working to get route sales delivery driver's licence, and works nightshift. Seen by the dental office receptionist and hold worker. Neurology consult was also called. Gastroesophageal reflux disease and dyspepsia. Discharged home. We will followup as outpatient. Caitlyn Toro MD MTDD
== END 2018-01-18 12:51 | disposition home or self-care (01) ==
LOC: ED 16:37 → ERH 18:16 → 3RSO 20:34
PROVIDERS: ADMIT Internal Medicine; ATTEND Internal Medicine
DX: I10 Essential (primary) hypertension (principal); K21.9 Gastro-esophageal reflux disease without esophagitis; R51 Headache; M54.2 Cervicalgia
CPT/HCPCS: 36415; 70450; 71046; 80048; 80053; 80061; 80324; 80345; 80346; 80349; 80353; 80358; 80361; 81003; 82550; 82607; 82746; 83036; 83540; 83550; 83615; 83690; 83735; 83992; 84443; 84484; 85025; 85027; 85610; 85730; 93005; 93306; 99285; G0378; J1885; J3420